=== PATIENT | female | born 2000 | race Hispanic/Latino ===

== ENCOUNTER 2022-06-28 14:52 | Outpatient (CLI) | payer OTHER, SELFPAY ==
--- NOTE | ~2022-06-28 | CT_ITS ---
EXAMINATION: CT sinus wo con DATE: 06/28/2022 15:32 INDICATION: Nasal obstruction TECHNIQUE: Computed tomography (CT) of the paranasal sinuses was performed without intravenous contra st. The dose-length product was 346.06 mGy-cm. Automated exposure control and iterative reconstructio n technique were employed. COMPARISON: No prior studies for comparison. FINDINGS: There is no significant mucosal thickening. No air-fluid levels. Rightward nasal septal dev iation. Ostiomeatal units are patent. Mastoids are pneumatized. IMPRESSION: 1. No significant sinus disease. Reviewed, dictated and finalized at location B.
== END 2022-06-28 14:53 | disposition home or self-care (01) ==
LOC: ANHIMG 14:59
PROVIDERS: PCP Registered Nurse; Visit Provider Registered Nurse
DX: J34.89 Other specified disorders of nose and nasal sinuses (principal)
CPT/HCPCS: 70486